=== PATIENT | female | born 1940 | race Caucasian/White ===

== ENCOUNTER → 2016-12-17 | Outpatient (CLI) | payer MEDICARE | LOC: MW.CHPS 08:00 | PROVIDERS: ATTEND Plastic Surgery | DX: C44.310 Basal cell carcinoma of skin of unspecified parts of face (principal); C44.519 Basal cell carcinoma of skin of other part of trunk | CPT/HCPCS: 99204 ==

== ENCOUNTER 2017-01-17 06:32 | Day surgery (SDC) | payer MEDICARE, OTHER ==
[2017-01-17] MEDS ORDERED: Bupivacaine 0.25%/EPINEPHrine 1:200,000 10 ML SDV INJECT ONE (07:00)
[2017-01-17] MEDS ORDERED: Lactated Ringers 1,000 ML IV SCH (07:00)
[2017-01-17] MEDS ORDERED: Lidocaine 2% 5 ML SDV ONE (07:09)
[2017-01-17] MEDS ORDERED: fentaNYL 100 MCG/2 ML SDV ONE (07:10)
[2017-01-17] MEDS ORDERED: Propofol 200 MG/20 ML SDV ONE (07:10)
--- NOTE | 2017-01-17 07:12 | PCM.PREANE ---
Preanesthetic Assessment - Anesthesia/Transfusion/Family Hx Anesthesia History: Prior Anesthesia Without Reaction Other Type of Anesthesia Reaction Comment: daughter has hx of difficult intubation Family History of Anesthesia Reaction: No Transfusion History: No Prior Transfusion(s) Intubation History: Unknown - Review of Systems General: No Symptoms Pulmonary: No Symptoms Cardiovascular: No Symptoms Gastrointestinal: No symptoms Neurological: No Symptoms Other: Reports: None - Physical Assessment O2 Sat by Pulse Oximetry: 98 Respiratory Rate: 16 Vital Signs: Last Vital Signs Temp 36.3 C 01/17/17 06:49 Pulse 62 01/17/17 06:49 Resp 16 01/17/17 06:49 BP 141/69 H 01/17/17 06:49 Pulse Ox 98 01/17/17 06:49 Height: 1.6 m Weight: 82.1 kg ASA Class: 3 Mental Status: Alert & Oriented x3 Airway Class: Mallampati = 2 Dentition: Reports: Partial (upper ) Thyro-Mental Finger Breadths: 2 Mouth Opening Finger Breadths: 2 ROM/Head Extension: Limited/Partial Lungs: Clear to auscultation, Normal respiratory effort Cardiovascular: Regular Rate, Regular Rhythm - Allergies Allergies/Adverse Reactions: Allergies Allergy/AdvReac Type Severity Reaction Status Date / Time bacitracin Allergy Redness Verified 01/15/17 09:54 morphine Allergy Cannot Verified 01/15/17 09:14 Remember Penicillins Allergy Itching Verified 01/15/17 09:54 Sulfa (Sulfonamide Allergy Swelling Verified 01/15/17 09:54 Antibiotics) - Blood Blood Available: No - Anesthesia Plan Pre-Op Medication Ordered: None - Acknowledgements Anesthesia Type Planned: MAC Pt an Appropriate Candidate for the Planned Anesthesia: Yes Alternatives and Risks of Anesthesia Discussed w Pt/Guardian: Yes Pt/Guardian Understands and Agrees with Anesthesia Plan: Yes PreAnesthesia Questionnaire HEENT History: Reports: Other (See Below) Other HEENT History: wears glasses, has top partial Cardiovascular History: Reports: High Cholesterol, Hypertension, Other (See Below) (H/O CHF about 5 years ago per petient) Respiratory History: Reports: Sleep Apnea Gastrointestinal History: Reports: Hiatal Hernia, Other (See Below) (h/o esophageal stricture (several dilatation- last one about 5 years ago per patient )) Genitourinary History: Reports: None [employer]IST History: Reports: Musculoskeletal History: Reports: Arthritis, Back Pain, Chronic Other Musculoskeletal History: chronic knee pain Endocrine/Metabolic History: Reports: Diabetes, Type II, Hypothyroidism, Obesity /BMI 30+ Oncologic (Cancer) History: Reports: Basal Cell Carcinoma Other Oncologic History: basal cell to trunk and face - Past Surgical History Head Surgeries/Procedures: Reports: None GI Surgical History: Reports: Colonoscopy, EGD Other GI Surgeries/Procedures: hx of EGD with dilitation Female Surgical History: Reports: Hysterectomy Endocrine Surgical History: Reports: Other (See Below) Other Endocrine Surgeries/Procedures: hx of removal of thyroid nodule Dermatological Surgical History: Reports: Skin Biopsy, Other (See Below) - SUBSTANCE USE Smoking Status *Q: Never Smoker Recreational Drug Use History: No - HOME MEDS Home Medications: Home Meds Acetaminophen 2 tab PO ASDIRECTED PRN 01/15/17 [History] Levothyroxine Sodium [Levo-T] 100 mcg PO DAILY 01/15/17 [History] Losartan/Hydrochlorothiazide [Hyzaar 100-25 Tablet] 1 tab PO ASDIRECTED [History] Metoprolol Tartrate [Lopressor] 100 mg PO ASDIRECTED 01/15/17 [History] Pravastatin Sodium [Pravachol] 40 mg PO ASDIRECTED 01/15/17 [History] amLODIPine Besylate [Amlodipine Besylate] 10 mg PO ASDIRECTED 01/15/17 [History] glyBURIDE/Metformin HCl [Glucovance 2.5-500 MG] 1 tab PO ASDIRECTED 01/15/17 [ History] - CURRENT (IN HOUSE) MEDS Current Meds: Current Medications Clindamycin Phosphate 600 mg/ (Premix) 50 mls @ 150 mls/hr IV ONETIME ONE Stop: 01/17/17 07:49 Last Admin: 01/17/17 07:04 Dose: 150 mls/hr Lactated Ringer's (Ringers, Lactated) 1,000 mls @ 75 mls/hr IV ASDIRECTED COUNT INCLUDES THE [facility] Last Admin: 01/17/17 07:03 Dose: 75 mls/hr Discontinued Medications Bupivacaine HCl/Epinephrine Bitart (Marcaine 0.25%/Epinephrine 1:200,000) 20 ml INJECT ONETIME ONE Stop: 01/17/17 07:01
[2017-01-17] MEDS ORDERED: Bupivacaine 0.25%/EPINEPHrine 1:200,000 10 ML SDV ONE (07:18)
[2017-01-17] MEDS ORDERED: Clindamycin Phosphate in D5W 600 MG in Premix Bag 1 BAG IV ONE ×2 (07:30)
[2017-01-17] MEDS ORDERED: Midazolam 1 MG/ML 2 ML SDV ONE (08:07)
[2017-01-17] MEDS ORDERED: Lidocaine 1% 20 ML MDV ONE (08:08)
--- NOTE | 2017-01-17 09:28 | PCM48HPAN ---
Post Anesthesia Note - EVALUATION WITHIN 48HRS OF ANESTHETIC Vital Signs in Normal Range: Yes Patient Participated in Evaluation: Yes Respiratory Function Stable: Yes Airway Patent: Yes Cardiovascular Function Stable: Yes Hydration Status Stable: Yes Pain Control Satisfactory: Yes Nausea and Vomiting Control Satisfactory: Yes Mental Status Recovered: Yes - COMMENTS/OBSERVATIONS Free Text/Narrative:: no anesthesia problems. Patient skipped recovery room phase of postoperative care.
[2017-01-17 09:33] VITALS: BP 119/70
--- NOTE | 2017-01-17 12:39 | PCM.OPNOTE ---
- General Post-Op/Procedure Note Date of Surgery/Procedure: 01/17/17 Operative Procedure(s): excision of back basal cell - 7cm total length of excision with intermediate repair. Pre Op Diagnosis: basal cell back Post-Op Diagnosis: Same Anesthesia Technique: Local, MAC Primary Surgeon: Tracy Betancourt Amusement Machine Mechanic: Stacie Cordova Complications: None Condition: Good
--- NOTE | 2017-01-17 18:45 | OR ---
SURGEON: JOSSE CHUN MD DATE OF PROCEDURE: 01/17/2017 PREOPERATIVE DIAGNOSIS: Basal cell carcinoma of the back. POSTOPERATIVE DIAGNOSIS: Basal cell carcinoma of the back. PROCEDURE: Excision of basal cell carcinoma of the back, 7 cm total length of excision with intermediate repair of 7 cm total length. ANESTHESIA: Local MAC. BUSHEL GIRL: DAYNE Shell INDICATIONS: Ms. Ernst is a 76-year-old female with numerous skin cancers. She has had a skin cancer excised on her forehead and also has a new forming lesion on her upper back. We discussed risks and benefits of excision of the back region and skin grafting to the forehead. She initially would have liked to proceed with skin grafting to the forehead, but states healed more and like to wait on this. We will plan for excision of just the back lesion. We will plan for closure and because of the size, frozen sections are not optimal for this. We will plan for permanent. Informed consent was obtained, all questions were answered. PROCEDURE IN DETAIL: After informed consent was obtained and placed on the chart, the patient was brought to the operating theater and laid in the supine position. After adequate local MAC anesthetic was obtained, the area was prepped and draped in normal fashion. Time-out was completed to confirm side and site. Attention was then paid to excision of the wound in an elliptical fashion for a total length of [address] down to the subcutaneous fat. This was marked at the 12 o'clock position and sent for pathology. Attention was then paid to meticulous hemostasis and then closure using a layered closure of deep dermal 3-0 Monocryl stitches and a running 3-0 Prolene for the skin of the back. She tolerated this well and all counts and needles were correct at the end the case. The wound was dressed with Tegaderm. FOLLOWUP INSTRUCTIONS: The patient tolerated the procedure well. All counts and needles were correct at the end the case. She will follow up with us in approximately 10 days for suture removal or sooner if any problems, questions, or concerns. HEGGTDAREN / BRANDONL /[id number]
== END 2017-01-17 09:31 | disposition home or self-care (01) ==
LOC: MW.SDS 06:32
PROVIDERS: ATTEND Plastic Surgery
PROC: 0HQ6XZZ Repair Back Skin, External Approach (ICD-10-PCS; principal; 2017-01-17)
PROC: 0HB6XZZ Excision of Back Skin, External Approach (ICD-10-PCS; 2017-01-17)
DX: C44.519 Basal cell carcinoma of skin of other part of trunk (principal); I10 Essential (primary) hypertension; E11.9 Type 2 diabetes mellitus without complications; E03.9 Hypothyroidism, unspecified; E78.5 Hyperlipidemia, unspecified; E66.9 Obesity, unspecified; Z79.899 Other long term (current) drug therapy
CPT/HCPCS: 11606; 12032; 88305; J2250; J3010; J7120; 00300; J2704